=== PATIENT | female | born 1940 | race Caucasian/White ===

== ENCOUNTER 2018-07-11 09:16 | Emergency (ER) | payer OTHER ==
[2018-07-11] MEDS ORDERED: NA CHLORIDE 0.9% 1,000 ML ONE (09:54)
[2018-07-11 09:56] LABS: Absolute Monocytes 0.7 K/uL (0.1-1.3); Absolute Neutrophil 3.3 K/uL (1.8-8.0); Eosinophils % 2.5 % (0-4.4); Hematocrit 35.6 % (36.0-45.0); Lymphocytes % 19.4 % (15.3-44.8); MCH 30.7 pg (27.0-35.0); MCV 88.6 fL (80-100); MPV 8.1 fL (7.6-11.3); Monocytes % 13.4 % (3.3-12.3); RBC Red Blood Cell Count 4.01 M/uL (3.86-4.86)
[2018-07-11 10:03] LABS: Protime INR 1.02
[2018-07-11 10:17] LABS: ALT/SGPT 28 U/L (12-78); AST/SGOT 21 U/L (15-37); Albumin 3.5 g/dL (3.4-5.0); Alkaline Phosphatase 71 U/L (45-117); BUN Blood Urea Nitrogen 10 mg/dL (7-18); Bicarbonate 25 mmol/L (21-32); Bilirubin Direct 0.2 mg/dL (0-0.2); Bilirubin Total 0.7 mg/dL (0.2-1.0); Glucose Level 98 mg/dL (74-106); NT PRO-BNP 471 pg/mL (<450); Potassium 3.8 mmol/L (3.5-5.1); Protein, Total 7.1 g/dL (6.4-8.2); Sodium Level 139 mmol/L (136-145); Troponin (Emerg Dept Use Only) < 0.02 ng/mL (0.0-0.045)
--- NOTE | 2018-07-11 10:17 | RAD REPORT ---
EXAM DESCRIPTION: CT - [id number] - 07/11/2018 9:58 am CLINICAL HISTORY: Trauma, head and neck injury. PAIN COMPARISON: No comparisons TECHNIQUE: Axial 5 mm thick images of the head were obtained. Axial 2 mm thick images of the cervical spine were obtained with sagittal and coronal reconstruction images generated and reviewed. All CT scans are performed using dose optimization technique as appropriate and may include automated exposure control or mA/KV adjustment according to patient size. FINDINGS: CT HEAD WITHOUT CONTRAST: No acute hemorrhage, hydrocephalus or extra-axial collection is identified.Mild generalized brain atr ophy is present with mild periventricular and deep white matter chronic microvascular ischemic change s.No areas of brain edema or midline shift. The paranasal sinuses and mastoids are clear.The calvarium is intact. CT CERVICAL SPINE WITHOUT CONTRAST: No fracture or subluxation.Prominent midcervical degenerative change with 3 mm degenerative anterolis thesis of C3 on C4 and 3 mm degenerative anterolisthesis of C4 on 5.No prevertebral soft tissues swel ling is identified. Moderate carotid atherosclerosis bilaterally. IMPRESSION: No acute intracranial or cervical spine findings. Moderate midcervical degenerative changes.
--- NOTE | 2018-07-11 10:18 | RAD REPORT ---
EXAM DESCRIPTION: RAD - Chest Single View - 07/11/2018 10:07 am CLINICAL HISTORY: MALAISE Chest pain. COMPARISON: CHEST SINGLE VIEW dated 06/28/2012 FINDINGS: Portable technique limits examination quality. The lungs are grossly clear. The heart is mildly enlarged in size. No displaced fractures.Mild thorac ic dextroscoliosis. IMPRESSION: No acute intrathoracic process suspected.
--- NOTE | 2018-07-11 11:52 | EDPHYS ---
Physician Documentation [facility] Name: Danna Mandujano Age: 77 yrs Sex: Female : 1940 Arrival Date: 07/11/2018 Time: 09:20 Bed 2 Private MD: Out, [facility] ED Physician Everardo Moctezuma HPI: 07/11 11:59 This 77 yrs old Female presents to ER via Ambulatory with complaints of Fall gs Injury. 11:59 Details of fall: The patient fell from an upright position. Onset: The symptoms/episode gs began/occurred yesterday. Associated injuries: The patient sustained injury to the head, contusion. Severity of symptoms: At their worst the symptoms were moderate, in the emergency department the symptoms have improved, markedly. The patient has experienced similar episodes in the past, multiple times, with the last episode occurring last week. The patient has not recently seen a physician. Historical: - Allergies: 09:35 No Known Allergies; ss - PMHx: 10:09 Hypertension; Hyperlipidemia; hb - Immunization history:: Adult Immunizations up to date. - Social history:: Smoking status: Patient/guardian denies using tobacco. - Ebola Screening: : Patient denies exposure to infectious person Patient denies travel to an Ebola-affected area in the 21 days before illness onset. ROS: 11:59 Unable to obtain ROS due to baseline dementia. gs Exam: 11:59 Eyes: Pupils equal round and reactive to light, extra-ocular motions intact. Lids and gs lashes normal. Conjunctiva and sclera are non-icteric and not injected. Cornea within normal limits. Periorbital areas with no swelling, redness, or edema. ENT: Nares patent. No nasal discharge, no septal abnormalities noted. Tympanic membranes are normal and external auditory canals are clear. Oropharynx with no redness, swelling, or masses, exudates, or evidence of obstruction, uvula midline. Mucous membranes moist. Chest/axilla: Normal chest wall appearance and motion. Nontender with no deformity. No lesions are appreciated. Cardiovascular: Regular rate and rhythm with a normal S1 and S2. No gallops, murmurs, or rubs. Normal PMI, no JVD. No pulse deficits. Respiratory: Lungs have equal breath sounds bilaterally, clear to auscultation and percussion. No rales, rhonchi or wheezes noted. No increased work of breathing, no retractions or nasal flaring. Abdomen/GI: Soft, non-tender, with normal bowel sounds. No distension or tympany. No guarding or rebound. No evidence of tenderness throughout. Back: No spinal tenderness. No costovertebral tenderness. Full range of motion. Skin: Warm, dry with normal turgor. Normal color with no rashes, no lesions, and no evidence of cellulitis. MS/ Extremity: Pulses equal, no cyanosis. Neurovascular intact. Full, normal range of motion. Neuro: Awake and alert, GCS 15, oriented to person, place, time, and situation. Cranial nerves II-XII grossly intact. Motor strength 5/5 in all extremities. Sensory grossly intact. Cerebellar exam normal. Normal gait. 11:59 Constitutional: The patient appears alert, awake. 11:59 Head/face: Noted is contusion, that is superficial, of the left side of the back of head. 11:59 Neck: C-spine: vertebral tenderness, that is mild, appreciated at C3 and C5. 11:59 ECG was reviewed by the Attending Physician. Vital Signs: 09:35 BP 132 / 80; Pulse 70; Resp 16; Temp 97.3(TE); Pulse Ox 98% on R/A; Weight 94.8 kg; ss Height 5 ft. 8 in. (172.72 cm); Pain 0/10; 10:32 BP 141 / 57; Pulse 65; Resp 17; Pulse Ox 96% on R/A; Pain 0/10; sg 09:35 Body Mass Index 31.78 (94.80 kg, 172.72 cm) MDM: 09:38 Patient medically screened. 11:59 Differential diagnosis: closed head injury, contusion, dehydration. Data reviewed: vital signs, nurses notes. Counseling: I had a detailed discussion with the patient and/or guardian regarding: the historical points, exam findings, and any diagnostic results supporting the discharge/admit diagnosis, lab results, radiology results, the need for outpatient follow up. Response to treatment: the patient's symptoms have mildly improved after treatment, and as a result, I will discharge patient. 07/11 09:39 Order name: Basic Metabolic Panel; Complete Time: 11:04 07/11 09:39 Order name: CBC with Diff; Complete Time: 11:04 07/11 09:39 Order name: LFT's; Complete Time: 11:04 07/11 09:39 Order name: Magnesium; Complete Time: 11:04 07/11 09:39 Order name: NT PRO-BNP; Complete Time: 11:04 07/11 09:39 Order name: PT-INR; Complete Time: 11:04 07/11 09:39 Order name: Troponin (emerg Dept Use Only); Complete Time: 11:04 07/11 09:39 Order name: XRAY Chest (1 view); Complete Time: 11:04 07/11 09:39 Order name: EKG; Complete Time: 09:40 07/11 09:39 Order name: Cardiac monitoring; Complete Time: 09:52 07/11 09:39 Order name: EKG - Nurse/Tech; Complete Time: 09:52 07/11 09:39 Order name: CT Head C Spine; Complete Time: 11:04 07/11 09:39 Order name: IV Saline Lock; Complete Time: 09:52 07/11 09:39 Order name: Labs collected and sent; Complete Time: 09:58 07/11 09:39 Order name: O2 Per Protocol; Complete Time: 09:41 07/11 09:39 Order name: O2 Sat Monitoring; Complete Time: 09:42 EC:59 Rate is 66 beats/min. Rhythm is regular. IL interval is normal. QRS interval is gs prolonged. T waves are Normal. No ST changes noted. Clinical impression: Abnormal EKG without significant change. Interpreted by me. Administered Medications: 10:15 Drug: NS 0.9% 1000 ml Route: IV; Rate: 1 bolus; Site: right antecubital; 11:19 Follow up: Response: No adverse reaction; IV Status: Completed infusion sg Disposition: 07/11/18 11:19 Discharged to Home. Impression: Weakness, Contusion of other part of head. - Condition is Stable. - Discharge Instructions: Head Injury, Adult, Weakness. - Medication Reconciliation Form, Thank You Letter, Antibiotic Education, Prescription Opioid Use form. - Follow up: Private Physician; When: 2 - 3 days; Reason: Re-evaluation by your physician. Signatures: [facility] Edmundo Velez RN RN sg Smirch, PratibhaMICHELE gee RN, Heather, RN RN Everardo Moctezuma MD MD gs Corrections: (The following items were deleted from the chart) 11:30 11:19 07/11/2018 11:19 Discharged to Home. Impression: Weakness; Contusion of other sg part of head. Condition is Stable. Forms are Medication Reconciliation Form, Thank You Letter, Antibiotic Education, Prescription Opioid Use. Follow up: Private Physician; When: 2 - 3 days; Reason: Re-evaluation by your physician. gs
--- NOTE | 2018-07-11 11:52 | ER ---
Nurse's Notes [facility] Name: Danna Mandujano Age: 77 yrs Sex: Female : 1940 Arrival Date: 07/11/2018 Time: 09:20 Bed 2 Private MD: Out, [facility] Diagnosis: Weakness;Contusion of other part of head Presentation: 07/11 09:32 Presenting complaint: daughter states that patient has been falling more frequently ss over the past few days after moving into her new assisted living home. Also increased confusion x " a few months", but has been getting noticeably worse since the move as well. Pt has no complaints at this time other than tailbone tenderness from a fall that occurred 5 days ago. Transition of care: patient was not received from another setting of care. Onset of symptoms is unknown. Risk Assessment: Do you want to hurt yourself or someone else? Patient reports no desire to harm self or others. Initial Sepsis Screen: Does the patient meet any 2 criteria? No. Patient's initial sepsis screen is negative. Does the patient have a suspected source of infection? No. Patient's initial sepsis screen is negative. Care prior to arrival: None. 09:32 Method Of Arrival: Ambulatory ss 09:32 Acuity: HELEN 3 ss Historical: - Allergies: 09:35 No Known Allergies; ss - PMHx: 10:09 Hypertension; Hyperlipidemia; hb - Immunization history:: Adult Immunizations up to date. - Social history:: Smoking status: Patient/guardian denies using tobacco. - Ebola Screening: : Patient denies exposure to infectious person Patient denies travel to an Ebola-affected area in the 21 days before illness onset. Screenin:44 Abuse screen: Denies threats or abuse. Denies injuries from another. Nutritional sg screening: No deficits noted. Tuberculosis screening: No symptoms or risk factors identified. Never had TB. Fall Risk None identified. Assessment: 09:44 General: Appears in no apparent distress. comfortable, well groomed, well developed, sg well nourished, Behavior is calm, cooperative, appropriate for age, quiet. Pain: Complains of pain in tailbone Quality of pain is described as tender, from a fall 5 days ago. Neuro: No deficits noted. Neuro: Reports episodes of falling, not sure as to why. Cardiovascular: Capillary refill is brisk in bilateral fingers Patient's skin is warm and dry. Chest pain is denied. Respiratory: Airway is patent Respiratory effort is even, unlabored, Respiratory pattern is regular, symmetrical. GI: No signs and/or symptoms were reported involving the gastrointestinal system. : No signs and/or symptoms were reported regarding the genitourinary system. EENT: No signs and/or symptoms were reported regarding the EENT system. Derm: Skin is pink, warm \\T\\ dry. Musculoskeletal: No signs and/or symptoms reported regarding the musculoskeletal system. 10:30 Reassessment: Patient appears in no apparent distress at this time. Patient and/or hb family updated on plan of care and expected duration. Pain level reassessed. Patient is alert, oriented x 3, equal unlabored respirations, skin warm/dry/pink. Vital Signs: 09:35 BP 132 / 80; Pulse 70; Resp 16; Temp 97.3(TE); Pulse Ox 98% on R/A; Weight 94.8 kg; ss Height 5 ft. 8 in. (172.72 cm); Pain 0/10; 10:32 BP 141 / 57; Pulse 65; Resp 17; Pulse Ox 96% on R/A; Pain 0/10; sg 09:35 Body Mass Index 31.78 (94.80 kg, 172.72 cm) ss ED Course: 09:20 Patient arrived in ED. sb2 09:21 Out, [facility] is Private Physician. sb2 09:24 Everardo Moctezuma MD is Attending Physician. gs 09:34 Triage completed. ss 09:35 Arm band placed on right wrist. ss 09:39 Edmundo Hale, RN is Primary Nurse. sg 09:[address] stretcher. cw1 09:51 EKG done, by ED staff, reviewed by Everardo Moctezuma MD. dh3 09:58 CT Head C Spine In Process Unspecified. EDMS 10:02 CT completed. Patient moved to radiology. kw1 10:04 XRAY Chest (1 view) In Process Unspecified. EDMS Administered Medications: 10:15 Drug: NS 0.9% 1000 ml Route: IV; Rate: 1 bolus; Site: right antecubital; sg 11:19 Follow up: Response: No adverse reaction; IV Status: Completed infusion sg Outcome: 11:19 Discharge ordered by . gs 11:30 Patient left the ED. sg Signatures: Dispatcher [employer] Edmundo Velez RN RN sg Smirch, Shelby, RN RN ss Woodley, Crystal cw1 Edna Ozuna RN RN Jill Granado 3 Everardo Moctezuma MD MD Sharee Bowen kw1 Aliya Lei sb2
[2018-07-11 12:13] VITALS: TEMP 97.3
[2018-07-11 12:14] VITALS: BP 141/57; O2SAT 96
--- NOTE | 2018-07-11 20:21 | EKG ---
Test Date: 2018-07-11 Test Time: 09:48:52 Network Support: MISHA MEASUREMENT RESULTS: Intervals: Rate: 66 UT: 152 QRSD: 142 QT: 424 QTc: 444 [place]: P: 40 UT: 152 QRS: -22 T: 83 INTERPRETIVE STATEMENTS: Normal sinus rhythm with sinus arrhythmia Left bundle branch block Abnormal ECG Compared to ECG 07/01/2012 06:24:18 No significant changes Electronically Signed On 07-11-18 20:20:25 MEDICAL BILLING [employer]ER by Yevgeniy Herron
== END 2018-07-11 11:30 | disposition home or self-care (01) ==
LOC: ER 09:16
DX: S00.83XA Contusion of other part of head, initial encounter (principal); W19.XXXA Unspecified fall, initial encounter; Y93.9 Activity, unspecified; Y92.9 Unspecified place or not applicable; I10 Essential (primary) hypertension; F03.90 Unspecified dementia, unspecified severity, without behavioral disturbance, psychotic disturbance, mood disturbance, and anxiety
CPT/HCPCS: 36415; 70450; 71045; 72125; 80048; 80076; 83735; 83880; 84484; 85025; 85610; 93005; 96360; 99284; J7030